=== PATIENT | male | born 1990 | race African-American/Black ===

== ENCOUNTER 2020-12-20 22:46 | Emergency (ER) | payer SELFPAY ==
[~2020-12-20] VITALS: Ht 167.6 cm; Wt 65.8 kg
[2020-12-20 22:46] VITALS: BP 0/0
--- NOTE | 2020-12-20 22:46 | NUR ---
224- PT ARRIVED WITH BVM AND CPR INITIATED BY EMS. PT HAS IO INSERTED RT LOWER LEG. PT NOTED WITH TRAUMATIC WITH OPEN HEAD WOUND, BLEEDING FROM EYES AND EARS. ONE EPI AND 100CC OF NS GIVEN PRIOR TO ARRIVAL. RT, EMT, ERMD, AT BEDSIDE. ARTURO SANCHEZ INITIATED AT 2241. SEE CODE BLUE RECORD FOR FURTHER DETAILS.
--- NOTE | 2020-12-20 22:46 | NUR ---
2243- PT BIBA, FULL ARREST. TAKEN TO ER BED 10. DR. GRAYSON AND RT AT BEDSIDE
--- NOTE | 2020-12-20 22:59 | NUR ---
PATIENT PRONOUNCED BY DR. GRAYSON AT THIS TIME
--- NOTE | 2020-12-20 23:43 | NUR ---
CALLED [facility] AND SPOKE TO THAIS, AND GATHERED INFORMATION REGARDING PT. PER THAIS, WE WILL BE RECONTACTED
--- NOTE | 2020-12-20 23:48 | NUR ---
CALLED [facility], SPOKE TO MELINDA. GATHERED INFORMATION REGARDING PT. PT'S CASE NUMBER IS : [id number]. PER MELINDA, "PT HAS A POSSIBLE ELIGIBILITY FOR ORGAN DONATION."
--- NOTE | 2020-12-21 00:35 | NUR ---
[facility] ARRIVED AND GAVE PT INFORMATION
--- NOTE | 2020-12-21 00:44 | NUR ---
[facility] AT BEDSIDE
--- NOTE | 2020-12-21 01:15 | NUR ---
CALLED [facility] TO GIVE AN UPDATE REGARDING PT INFORMATION, PER DISPATCHER, WE WILL BE CONTACTED
--- NOTE | 2020-12-21 01:27 | NUR ---
RECEIVED A CALL FROM [facility], AND SPOKE TO KERRI. GATHERED INFORMATION REGARDING PATIENT
--- NOTE | 2020-12-21 01:36 | NUR ---
RECEIVED A CALL FROM [facility] AND SPOKE TO ELFEGO. GATHERED INFORMATION FOR PATIENT AND PER ELFEGO, "IT'S GONNA BE A [facility]'S CASE. WE'LL VICE [facility] THE BODY, AND ETA IS MORE OR LESS AN HOUR TO HOUR AND A HALF."
--- NOTE | 2020-12-21 03:13 | NUR ---
MILL TENDER WARM UP AT BEDSIDE
--- NOTE | 2020-12-21 04:16 | NUR ---
PATIENT TAKEN BY [employer] VIA GURNEY.
== END 2020-12-20 22:59 ==
LOC: MED 22:46
DX: I46.9 Cardiac arrest, cause unspecified (principal); V98.8XXA Other specified transport accidents, initial encounter; Y93.89 Activity, other specified; Y92.89 Other specified places as the place of occurrence of the external cause; Y99.8 Other external cause status
CPT/HCPCS: 31500; 92950; 99285